=== PATIENT | female | born 1990 | race Caucasian/White ===

== ENCOUNTER 2022-08-27 11:05 | Emergency (ER) | payer OTHER, SELFPAY ==
--- NOTE | ~2022-08-27 | XR_ITS ---
EXAMINATION: XR chest 2V DATE: 08/27/2022 13:29 INDICATION: 4 days of persistent worsening cough TECHNIQUE: PA and lateral views of the chest were obtained. COMPARISON: None FINDINGS: Mild perihilar bronchial wall thickening best appreciated on the lateral projection. No focal airspac e opacities, pleural effusion or pneumothorax. The cardiomediastinal silhouette is normal. Visualized bones and soft tissues are unremarkable. IMPRESSION: 1. Mild perihilar bronchial wall thickening without evident airspace disease which could be seen with bronchitis or reactive airway disease/asthma. Reviewed, dictated and finalized at location A. IMPRESSION: 1. Mild perihilar bronchial wall thickening without evident airspace disease wh ich could be seen with bronchitis or reactive airway disease/asthma.
[2022-08-27 11:08] VITALS: BP 122/90; PULSE 86; RESP 18; TEMP 36.1; O2SAT 100
[2022-08-27 11:18] VITALS: O2SAT 99
--- NOTE | 2022-08-27 12:34 | ED.URI ---
HPI - URI/Sore Throat General Chief Complaint: Upper Respiratory Infection Stated Complaint: flu B+, cough Time Seen by Provider: 08/27/22 12:03 Source: patient Mode of arrival: ambulatory Limitations: no limitations History of Present Illness HPI Narrative: Patient is a 32 y/o female who presents to the ED with c/o cough. Patient reports she was diagnosed with Influenza B on Thursday. She c/o progressively worsening cough since then, in addition to sore throat, myalgias. Patient is currently 12 weeks gestation[address] She sees Dr[address] Kumar. Denies any abdominal pain, vaginal bleeding, leakage of fluid. Patient was started on Tamiflu Thursday and has been taking this, in addition to Tessalon Perles and Robitussin w/o much relief. She reports cough is worse at night to the point she has had a few episodes of post-tussive emesis and mild difficulty catching her breath after a coughing fit. She denies significant SOB while at rest, denies any CP. Denies documented fevers. Related Data Allergies Allergy/AdvReac Type Severity Reaction Status Date / Time Sulfa (Sulfonamide Allergy Hives Verified 08/27/22 11:21 Antibiotics) Review of Systems Review of Systems: CONSTITUTIONAL: See HPI. ENT: See HPI. CARDIOVASCULAR: Denies chest pain, palpitations, or edema. RESPIRATORY: See HPI. GASTROINTESTINAL: Denies abdominal pain, nausea, vomiting, or diarrhea. GENITOURINARY: Denies vaginal bleeding, dysuria or hematuria. SKIN: Denies rash or itching. MUSCULOSKELETAL: See HPI. NEUROLOGIC: Denies headache, numbness, or weakness. All systems reviewed & are unremarkable except as noted in HPI and below PMFSH Past Medical History Medical History (Updated 08/27/22 @ 16:25 by Marily Pierce PA-C) No pertinent past medical history Surgical History Surgical History (Updated 08/27/22 @ 13:46 by Marily Pierce PA-C) No pertinent past surgical history Social History Social History (Updated 08/27/22 @ 13:46 by Marily Pierce PA-C) Smoking status: Never smoker Exam Narrative: GENERAL: Well appearing, well-nourished, non-toxic, in no acute distress. HEAD: Normocephalic, atraumatic. NECK: Supple. No adenopathy, no masses. RESPIRATORY: Airway patent, respirations nonlabored. Clear to auscultation bilaterally, no rales, rhonchi, wheezing. Frequent coughing on exam. No tachypnea. No stridor. CARDIOVASCULAR: Regular rate and rhythm without murmurs, rubs, or gallops. Radial pulses 2+ and equal bilaterally. ABDOMINAL: Soft, gravid uterus, nontender, nondistended, no hepatosplenomegaly. Normoactive BS. MUSCULOSKELETAL: Moves all extremities. Strength/ROM intact without gross deformities. SKIN: Warm, dry, normal color. No rashes. NEURO: A&O X3. Speech clear. Cranial nerves II-XII grossly intact. Steady gait. No ataxic movements. PSYCHIATRIC: Appropriate mood and affect. Normal interaction. Course Vital Signs Vital signs: Vital Signs Temperature 97.0 F L 08/27/22 11:08 Pulse Rate 86 08/27/22 11:08 Respiratory Rate 18 08/27/22 11:08 Blood Pressure 122/90 08/27/22 11:08 Pulse Oximetry 100 08/27/22 11:08 Oxygen Delivery Room Air 08/27/22 11:08 Temperature 97.0 F L 08/27/22 11:08 Pulse Rate 75 08/27/22 16:02 Respiratory Rate 18 08/27/22 16:02 Blood Pressure 133/76 08/27/22 15:22 Pulse Oximetry 100 08/27/22 15:22 Oxygen Delivery Room Air 08/27/22 11:18 MDM - URI/Sore Throat MDM Narrative Medical decision making narrative: Patient presented to ED with persistent cough after being diagnosed with influenza B on Thursday. Started on Tamiflu as she is currently 12 weeks . Denying any issues with . Lungs clear on auscultation. Vitals stable. Afebrile. No tachycardia or tachypnea. No hypoxia. Patient was ambulated throughout the ED, and no hypoxia was noted. Oxygen saturation did not drop below 98%. Patient did not feel significantly out of breath. Chest x-ray obtained and wi
--- NOTE | 2022-08-27 14:35 | PC.NURSE ---
Addendum entered by Maryam Quinteros RN 08/27/22 14:51: Attempted at this time for FHR via external doppler without success. MEI Davis made aware. Original Note: Attempted at this time
[2022-08-27] MEDS: LEVALBUTEROL NEB 1.25 MG/3 ML 2.5 MG INHALATION (14:51)
[2022-08-27] MEDS: IPRATROPIUM BR 0.02% INH SOLN 0.5 MG/2.5 ML VIAL 1.5 MG INHALATION (14:51)
[2022-08-27 14:58] VITALS: PULSE 70; RESP 18
[2022-08-27 15:22] VITALS: BP 133/76; PULSE 90; RESP 20; O2SAT 100
[2022-08-27 16:02] VITALS: PULSE 75; RESP 18
[2022-08-27 16:50] VITALS: BP 125/81; PULSE 97; RESP 18; O2SAT 99
== END 2022-08-27 16:51 | disposition home or self-care (01) ==
PROVIDERS: Emergency Provider Physician Assistant
DX: O99.511 Diseases of the respiratory system complicating pregnancy, first trimester (principal); J10.1 Influenza due to other identified influenza virus with other respiratory manifestations; R05.9 Cough, unspecified; R91.8 Other nonspecific abnormal finding of lung field; Z3A.12 12 weeks gestation of pregnancy
CPT/HCPCS: 71046; 94640; 99283

== ENCOUNTER 2023-01-15 13:25 | Outpatient (RCR) | payer OTHER, SELFPAY ==
[2023-01-17] MEDS: RHO(D) IMMUNE GLOBULIN 300 MCG/2 ML SYRINGE IM (10:30)
== END 2023-04-15 23:59 | disposition home or self-care (01) ==
LOC: ANHLAB 13:25
PROVIDERS: Visit Provider Obstetrics & Gynecology
DX: Z29.13 Encounter for prophylactic Rho(D) immune globulin (principal); O36.0190 Maternal care for anti-D [Rh] antibodies, unspecified trimester, not applicable or unspecified; Z3A.00 Weeks of gestation of pregnancy not specified
CPT/HCPCS: 36415; 85461; 86850; 86900; 86901; 90384; 96372; J2790

== ENCOUNTER 2023-03-03 15:08 | Observation (INO) | payer OTHER, SELFPAY ==
[2023-03-03] VITALS (11 sets, daily range): BP systolic 102–108; BP diastolic 63–72; PULSE 84–103; O2SAT 94–99; BMI 29.3
--- NOTE | 2023-03-03 15:46 | OBADM ---
This patient, Hailee Ordaz, admitted to the OB room Labor/Delivery/Recovery 120 for observation. Patient/family oriented to hospital policies and general routines including ID bracelet, bed and alarms, visiting hours, pain management, procedures, bathroom and other care routines, personal items, smoking policy, room service/diet, and visiting hours. Patient/Family are encouraged to report perceived risks to care and to ask questions if they do not understand what they are told or what they should do.
[2023-03-03 15:53] LABS: Appearance Urine Clear (Clear); Bilirubin Urine Negative (Negative); Blood Urine Negative (Negative); Color Urine Yellow (Yellow); Glucose Urine UA Negative (Negative); Ketones Urine Negative (Negative); Leukocyte Esterase Ur Negative LEU/UL (Negative); Nitrate Urine Negative (Negative); Protein Urine Negative (Negative); Specific Grav Ur 1.004 (1.001-1.035); Urobilinogen Urine 0.2 mg/dL (<2.0)
[2023-03-03 15:54] LABS: Add Urine Microscopic? NO
[2023-03-03] MEDS: TERBUTALINE SULFATE 1 MG/ML VIAL 0.25 MG SUB-Q (16:37)
--- NOTE | 2023-03-03 17:01 | PC.NURSE ---
Dr. Kumar notified of NST and contractions, give dose of terb. Dr. Kumar notified of FHT, contractions and update on patient. Okay to discharge.
--- NOTE | 2023-03-19 13:04 | P.PNOB_ITS ---
OB - Triage/Final Diagnosis Visit Information Comments/Additional reasons for admission: I have assessed the risk for this patient, Madina Ordaz, and determined that she would benefit from observation care. Evaluation Laboratory results: Laboratory Tests 03/03/23 15:37 Urine Color Yellow Urine Appearance Clear Urine pH 7.0 Ur Specific [place] 1.004 Urine Protein Negative Urine Glucose (UA) Negative Urine Ketones Negative Ur Blood (Man) Negative Urine Nitrate Negative Urine Bilirubin Negative Urine Urobilinogen 0.2 Leukocyte Esterase Rfl Negative Final Diagnosis (1) False labor: Code(s): O47.9 - False labor, unspecified Status: Acute
== END 2023-03-03 17:16 | disposition home or self-care (01) ==
PROVIDERS: Admitting Provider Obstetrics & Gynecology; Visit Provider Obstetrics & Gynecology
DX: O47.03 False labor before 37 completed weeks of gestation, third trimester (principal); Z3A.35 35 weeks gestation of pregnancy
CPT/HCPCS: 81003; 96372; G0378; G0379; J3105

== ENCOUNTER 2023-03-04 10:09 | Observation (INO) | payer OTHER, SELFPAY ==
[2023-03-04] VITALS (60 sets, daily range): BP systolic 102–116; BP diastolic 57–78; PULSE 51–117; TEMP 36.8; O2SAT 81–100; BMI 29.1
--- NOTE | 2023-03-04 11:00 | OBADM ---
This patient, Madina Ordaz, admitted to the OB [id number] for observation. Patient/family oriented to hospital policies and general routines including ID bracelet, bed and alarms, visiting hours, pain management, procedures, bathroom and other care routines, personal items, smoking policy, room service/diet, and visiting hours. Patient/Family are encouraged to report perceived risks to care and to ask questions if they do not understand what they are told or what they should do.
[2023-03-04] MEDS: TERBUTALINE SULFATE 1 MG/ML VIAL 0.25 MG SUB-Q (11:31)
[2023-03-04] MEDS: NIFEdipine 10 MG CAPSULE PO (14:37)
--- NOTE | 2023-03-19 13:04 | PM.OBTRLD ---
OB - Triage/Final Diagnosis Visit Information Comments/Additional reasons for admission: I have assessed the risk for this patient, Madina Ordaz, and determined that she would benefit from observation care. Final Diagnosis (1) False labor: Code(s): O47.9 - False labor, unspecified Status: Acute
== END 2023-03-04 16:09 | disposition home or self-care (01) ==
PROVIDERS: Admitting Provider Obstetrics & Gynecology; Visit Provider Obstetrics & Gynecology
DX: O47.03 False labor before 37 completed weeks of gestation, third trimester (principal); Z3A.35 35 weeks gestation of pregnancy
CPT/HCPCS: 96372; A9270; G0378; G0379; J3105

== ENCOUNTER 2023-03-06 12:45 | Observation (INO) | payer OTHER, SELFPAY ==
[2023-03-06 13:26] VITALS: BMI 29.7
--- NOTE | 2023-03-06 13:27 | OBADM ---
This patient, Madina Ordaz, admitted to the OB room OB Post 117 for observation. Patient/family oriented to hospital policies and general routines including ID bracelet, bed and alarms, visiting hours, pain management, procedures, bathroom and other care routines, personal items, smoking policy, room service/diet, and visiting hours. Patient/Family are encouraged to report perceived risks to care and to ask questions if they do not understand what they are told or what they should do.
[2023-03-06 13:30] VITALS: BP 102/72; PULSE 105
[2023-03-06 13:35] LABS: Appearance Urine Clear (Clear); Bilirubin Urine Negative (Negative); Blood Urine Negative (Negative); Color Urine Yellow (Yellow); Glucose Urine UA Negative (Negative); Ketones Urine 1+ mg/dL (Negative); Leukocyte Esterase Ur Negative LEU/UL (Negative); Nitrate Urine Negative (Negative); Protein Urine Negative (Negative); Urobilinogen Urine 0.2 mg/dL (<2.0)
[2023-03-06 13:45] VITALS: BP 107/66; PULSE 100
[2023-03-06 13:51] LABS: Add Urine Microscopic? NO
[2023-03-06 14:00] VITALS: BP 106/66; PULSE 95
[2023-03-06 14:15] VITALS: BP 105/72; PULSE 92
--- NOTE | 2023-03-06 14:22 | PC.NURSE ---
Report to Dr. Kumar re: fhr tracing, no contractions noted, and u/a results. Orders to DC home and have pt. keep regular appt.
[2023-03-06 14:30] VITALS: BP 98/70; PULSE 95
--- NOTE | 2023-03-19 13:05 | P.PNOB_ITS ---
OB - Triage/Final Diagnosis Visit Information Comments/Additional reasons for admission: I have assessed the risk for this patient, Madina Ordaz, and determined that she would benefit from observation care. Evaluation Laboratory results: Laboratory Tests 03/06/23 13:29 Urine Color Yellow Urine Appearance Clear Urine pH 7.0 Ur Specific [place] 1.010 Urine Protein Negative Urine Glucose (UA) Negative Urine Ketones 1+ H Ur Blood (Man) Negative Urine Nitrate Negative Urine Bilirubin Negative Urine Urobilinogen 0.2 Leukocyte Esterase Rfl Negative Final Diagnosis (1) False labor: Code(s): O47.9 - False labor, unspecified Status: Acute
== END 2023-03-06 14:40 | disposition home or self-care (01) ==
PROVIDERS: Admitting Provider Obstetrics & Gynecology; Visit Provider Obstetrics & Gynecology
DX: O47.9 False labor, unspecified (principal); Z3A.00 Weeks of gestation of pregnancy not specified
CPT/HCPCS: 81003; G0378; G0379

== ENCOUNTER 2023-03-31 12:44 | Outpatient (CLI) | payer OTHER, SELFPAY ==
[2023-03-31 13:07] LABS: Hematocrit 39.1 % (37.0-47.0); Hemoglobin 12.6 g/dL (12.0-15.0); Mean Corpuscular HGB Conc 32.2 g/dl (32-36); Mean Corpuscular Hemoglobin 30.4 pg (26-34); Mean Corpuscular Volume 94.4 fl (80-100); Mean Platelet Volume 10.8 fl (7.4-10.4); Platelet Count Result 227 k/mm3 (150-375); Red Blood Count 4.14 M/mm3 (4.2-5.4); Red Cell Distribution Width 14.3 % (11.5-14.5); White Blood Count 9.9 K/mm3 (4.5-10.0)
[2023-03-31 15:45] LABS: Rapid Plasma Reagin Non-Reactive (NonReactive)
== END 2023-03-31 12:45 | disposition home or self-care (01) ==
LOC: ANHLAB 12:45
PROVIDERS: Visit Provider Obstetrics & Gynecology
DX: Z34.93 Encounter for supervision of normal pregnancy, unspecified, third trimester (principal); Z3A.00 Weeks of gestation of pregnancy not specified
CPT/HCPCS: 36415; 85027; 86592; 86850; 86880; 86900; 86901

== ENCOUNTER 2023-04-01 05:08 | Inpatient (IN) | payer OTHER, SELFPAY ==
[2023-04-01] VITALS (64 sets, daily range): BP systolic 85–128; BP diastolic 44–92; PULSE 58–148; RESP 16–20; TEMP 36.1–36.6; O2SAT 98–100; BMI 28.2
--- NOTE | 2023-04-01 05:35 | LDADM ---
This patient, Madina Ordaz, was admitted to Labor/Delivery/Recovery 120 on 04/01/23 at 05:08. Plans for labor, pain management and were discussed with patient. Patient/family oriented to hospital policies and general routines including ID bracelet, bed and alarms, visiting hours, pain management, procedures, bathroom and other care routines, personal items, smoking policy, room service/diet and guest tray routines, infant security routines, and visiting hours. Patient/Family are encouraged to report perceived risks to care and to ask questions if they do not understand what they are told or what they should do. See OBIX for further documentation.
[2023-04-01] MEDS: LACTATED RINGERS 1,000 ML 125 ML IV CONT ×2 (05:49→06:56)
--- NOTE | 2023-04-01 07:38 | WPDANESEPP ---
Anes - Eval Pre Procedure Procedure: Operation Date: 04/01/23 07:30 Proposed Procedures p Repeat Section - David Kumar MD Date/Time: 04/01/23 07:38 Surgeon: Stacy Preop Diagnosis: previous c/s Pre Op Diagnosis: Repeat Patient Data Age: 32 Gender: F Height: 1.65 m Weight: 77 kg Last Vital Signs Pulse 82 04/01/23 06:45 BP 116/76 04/01/23 06:45 O2 Del Method Room Air 04/01/23 06:41 Allergies Allergy/AdvReac Type Severity Reaction Status Date / Time Sulfa (Sulfonamide Allergy Hives Verified 03/09/23 13:16 Antibiotics) Home Medications Medication Instructions Recorded Confirmed Type vit no.95-ferrous 1 tablet PO DAILY 03/04/23 04/01/23 History fumarate 28 mg-folic acid 800 mcg tablet () Patient hx anesthesia problems: none Family hx anesthesia problems: none Results Review: All pre-operative results and documents have been reviewed as part of the pre-operative evaluation. [facility] Past Medical History Medical History No pertinent past medical history Surgical History Surgical History No pertinent past surgical history Family History Family History Father Type 2 diabetes mellitus Social History Social History Smoking status: Never smoker Substance use: never Lack of Transportation: No Lack of Food: Never True Current Housing: I Have Housing Concerned About Future Housing: No Difficulty Paying Gas/Electric Bills: No Difficulty Paying for Meds: No Currently Unemployed: No Education: Associate Degree Difficulty w/ Childcare or Family Care: No Spiritual care concerns: No Exam Day of Procedure 04/01/23 07:38 Patient weight: normal Heart: regular rate and rhythm Lungs: normal air movement Airway: Mallampati scale class II Neurological: alert and oriented
--- NOTE | 2023-04-01 07:38 | PM.IMHP ---
H&P: HPI History of Present Illness Date/Time: 04/01/23 07:38 Chief Complaint: Here for C section Narrative: 32 y/o at 39 1/7 weeks here for repeat . GBS neg. Rh neg. essentially uncomplicated. Review of Systems Review of Systems: All systems reviewed & are unremarkable except as noted in HPI and below PMFSH Past Medical History Medical History (Updated 04/01/23 @ 07:41 by David Kumar MD) No pertinent past medical history Surgical History Surgical History (Updated 04/01/23 @ 07:41 by David Kumar MD) History of delivery No pertinent past surgical history Family History Family History Father Type 2 diabetes mellitus Social History Social History Smoking status: Never smoker Substance use: never Lack of Transportation: No Lack of Food: Never True Current Housing: I Have Housing Concerned About Future Housing: No Difficulty Paying Gas/Electric Bills: No Difficulty Paying for Meds: No Currently Unemployed: No Education: Associate Degree Difficulty w/ Childcare or Family Care: No Spiritual care concerns: No Meds Home Medications and Allergies Home Medications Medication Instructions Recorded Confirmed Type vit no.95-ferrous 1 tablet PO DAILY 03/04/23 04/01/23 History fumarate 28 mg-folic acid 800 mcg tablet () Allergies Allergy/AdvReac Type Severity Reaction Status Date / Time Sulfa (Sulfonamide Allergy Hives Verified 03/09/23 13:16 Antibiotics) Vital Signs Vital Signs - 24 hr 04/01/23 05:35 04/01/23 05:45 04/01/23 06:00 Pulse Rate 82 80 87 Blood Pressure 111/73 119/76 128/82 Oxygen Delivery 04/01/23 06:15 04/01/23 06:30 04/01/23 06:45 Pulse Rate 80 74 82 Blood Pressure 122/76 127/72 116/76 Oxygen Delivery 04/01/23 06:41 Pulse Rate Blood Pressure Oxygen Delivery Room Air Exam Const: Orientation/consciousness: patient oriented x3 Other: Well-developed, well-nourished female in no acute distress. Neck: Thyroid: thyroid normal Lymphatic: no lymphadenopathy noted (in neck, axilla or inguinal nodes) Resp: Effort & Inspection: normal respiratory effort Auscultation: clear to auscultation bilaterally Cardio: Rate: regular rate Rhythm: regular rhythm Heart sounds: S1 normal heart sound present and S2 normal heart sound present GI: Other: ABD: Soft, nontender, nondistended, gravid. NST reactive. TOCO: irregular contractions. No guarding or rebound tenderness. No hepatosplenomegaly. : General: Yes no CVA tenderness Other: Cervix 1/80/-2 at last office visit Back/Spine/Pelvis: Back: no CVA tenderness Skin: General skin exam: normal color and no rashes or lesions noted Neuro: General: patient oriented x3 Extrem: Other: Extremities: nontender with no edema Psych: Mental Status: mental status grossly normal Affect: normal affect Assessment and Plan Assessment and plan (1) Term : Code(s): Z34.90 - Encounter for supervision of normal , unspecified, unspecified trimester Status: Acute Assessment and Plan: A: IUP at 39 1/7 weeks with prior , desires repeat. P: Offered repeat delivery. She understands risks of surgery to include risks of anesthesia, risks of pain, infection, bleeding, blood products, thromboembolic phenomena and damage to adjacent structures such as bowel, bladder, ureters, blood vessels and nerves. She understands all these risks and elects to proceed with surgery. (2) History of delivery: Code(s): Z98.891 - History of uterine scar from previous surgery Status: Acute
[2023-04-01] MEDS: ceFAZolin 2 GM/D5W 50 ML 2 GM/50 ML BAG IVPB (07:40)
--- NOTE | 2023-04-01 07:41 | WPDHPUPDATE1 ---
History and Physical Update Update Date/Time: 04/01/23 07:41 History and Physical has been reviewed, including an updated exam of the patient. There are NO changes in the patient's condition. Risks, benefits, and alternatives have been discussed and questions answered. Patient agrees to proceed with procedure.
[2023-04-01] MEDS: KETOROLAC 30 MG/ML VIAL (*BKC) 15 MG IV PUSH (08:25)
--- NOTE | 2023-04-01 08:31 | W.PM.OBCSD ---
OB - Delivery Note Procedure Delivery date: 04/01/23 Pre-op diagnosis: Other (1) IUP at 39 1/7 weeks; 2) Prior , desires repeat) Post-op Diagnosis: Same Induction method: None Delivery monitor: External FHT and External Uterine Procedure Performed: Repeat Surgeon: David Kumar MD Anesthesia type: Spinal Description of Procedure/Findings: The patient was taken to the operating room where she was prepared and draped in the usual sterile fashion in dorsal supine position with a leftward tilt. She received cefazolin preoperatively. Spinal anesthesia was found to be adequate. A Pfannenstiel skin incision was made, excising the previous scar and discarding it. The incision was carried through to the underlying layer of the fascia. The fascia was incised in the midline and the incision was extended laterally. The fascia was dissected free of the underlying rectus muscles. The rectus muscles were in the midline. The peritoneum was identified, tented up and entered sharply. The peritoneal incision was extended superiorly and inferiorly with good visualization of the bladder. The bladder blade was placed. The vesicouterine peritoneum was identified, tented up and entered sharply. The incision was extended laterally and the bladder flap was developed. The bladder blade was replaced. The uterus was then incised sharply in a transverse fashion along the lower uterine segment. The incision was extended laterally. The 's head was delivered atraumatically to the sterile field, followed by the body. The nose and mouth were bulb suctioned. After a delay, the cord was clamped and cut. The was handed off the field. Cord blood was collected. The placenta was removed manually and was passed off the field. The uterus was exteriorized and cleared of all clots and debris. The uterine incision was reapproximated using 0 Monocryl in a running, locked fashion. Excellent hemostasis resulted as did excellent reapproximation of the normal anatomy. The uterus was returned the abdomen. The pelvis was irrigated copiously with warmed normal saline. Rigorous hemostasis was assured. The fascial layer was reapproximated using 0 Vicryl in a running fashion. The skin was closed with a running, subcuticular stitch of 4 0 Vicryl. Dermaflex was applied externally. Sponge, lap, needle and instrument counts were correct. The patient was taken to the recovery room in stable condition. The infant went to the nursery. I was present and scrubbed the entire procedure. Specimen: Yes (cord blood) Estimated Blood Loss: 115 Drains: Yes ([place]) Packing: No Pathology: Yes (Cord blood) Complications: None Condition: Stable Disposition: PACU Baby Date of : 04/01/23 Time of : 08:03 Weeks of gestation at delivery: 39 Infant gender: Female Weight (pounds): 6 Weight (ounces): 12 presentation: vertex Placenta delivery description: Manual Removal and Normal Configuration Cord Vessel Description: 3 Vessels score one minute: 4 score five minutes: 6 score ten minutes: 9
--- NOTE | 2023-04-01 08:35 | P.DS_ITS ---
DS: Admitting Diagnosis Discharge Date 04/03/23 Admitting Diagnosis IUP at 39 1/7 weeks Prior , desires repeat DS: Discharge Diagnosis Discharge Diagnosis (1) delivery delivered: Code(s): O82 - Encounter for delivery without indication Status: Acute OB - DS: Summary OB Procedures : None OB Procedures Intrapartum: OB Procedures: : RHo (D) lg Peripartum Data Procedures: Procedures Operation Date: 04/01/23 07:30 <No data on this case meets the specified criteria> Repeat LTCS Time Spent with Patient Time attestation: Total time spent providing and/or coordinating discharge services: Discharge Plan Discharge Attending physician on discharge: David Kumar Discharging Clinician: David Kumar Patient Disposition: Home, Self-Care Activity: may shower, may drive after 2 weeks and pelvic rest Diet: regular Wound Care Instructions: incision open to air Discharge Instructions: Call or return if temperature above 100.4? F, increased abdominal pain, increased vaginal bleeding or any new problems. Stand Alone Forms: General Discharge Information Follow-up/Referrals: David Kumar MD [Physician] - 4 Weeks Discharge Medications: New ibuprofen 600 mg tablet 600 mg PO Q6H PRN (Reason: cramps) Qty: 30 0RF hydrocodone-acetaminophen 5-325 mg tablet 1 - 2 tablet PO Q6H PRN (Reason: pain) Qty: 30 0RF Continued PNV cmb#95-ferrous fumarate-FA [] 28 mg iron- 800 mcg Tablet 1 tablet PO DAILY Date of admission: 04/01/23 05:08 Primary Care Provider: PHYSICIAN,PLASTIC CUTTER Admitting Provider: David Kumar Attending physician on admission: David Kumar Condition: Stable
[2023-04-01] MEDS: OXYTOCIN 30 UNITS/NS 500 ML 30 UNITS/500 ML BAG 125 UNITS IV CONT (09:13)
--- NOTE | 2023-04-01 11:01 | PC.NURSE ---
Patient transferred to post room #290 via stretcher. Support person present. Oriented to unit, room, information board, rooming in, admission packet and security measures. Patient verbalizes understanding.
[2023-04-01] MEDS: DEXTROSE 5%/0.45% SOD CHL 1,000 ML 125 ML IV CONT ×2 (12:22→23:45)
[2023-04-01] MEDS: KETOROLAC 30 MG/ML VIAL (*BKC) IV PUSH (12:23)
[2023-04-01] MEDS: SODIUM CHLORIDE 0.9% IV 500 ML 999 ML IV CONT (20:45)
[2023-04-01 21:07] LABS: Hematocrit 32.3 % (37.0-47.0); Hemoglobin 10.4 g/dL (12.0-15.0)
[2023-04-02] MEDS: HYDROcodone/acetaminophen (*CRX) 5-325 MG TABLET 1 TAB PO ×5 (00:24→23:07)
[2023-04-02 03:55] VITALS: BP 97/63; PULSE 70; RESP 18; TEMP 37; O2SAT 97
[2023-04-02 04:41] LABS: Basophils Percent Auto 0.3 % (0.2-1.2); Eosinophils Absolute Auto 0.1 K/mm3 (0-0.3); Eosinophils Percent Auto 0.5 % (0-4.4); Hematocrit 32.7 % (37.0-47.0); Hemoglobin 10.5 g/dL (12.0-15.0); Immature Granulocyte Absolute 0.04 K/mm3 (0.00-0.031); Immature Granulocyte Percent A 0.4 % (0-0.5); Lymphocytes Absolute Auto 2.35 K/mm3 (0.9-3.2); Lymphocytes Percent Auto 25.5 % (18.3-44.2); Mean Corpuscular HGB Conc 32.1 g/dl (32-36); Mean Corpuscular Hemoglobin 31.3 pg (26-34); Mean Corpuscular Volume 97.3 fl (80-100); Mean Platelet Volume 11.1 fl (7.4-10.4); Monocytes Absolute Auto 0.8 K/mm3 (0.1-0.6); Monocytes Percent Auto 8.6 % (2.6-8.5); Neutrophils Absolute Auto 5.9 K/mm3 (1.3-6.7); Neutrophils Percent Auto 64.7 % (45.5-73.1); Platelet Count Result 188 k/mm3 (150-375); Red Blood Count 3.36 M/mm3 (4.2-5.4); Red Cell Distribution Width 14.4 % (11.5-14.5); White Blood Count 9.2 K/mm3 (4.5-10.0)
[2023-04-02 07:20] VITALS: BP 96/62; PULSE 76; RESP 16; TEMP 37; O2SAT 97
[2023-04-02] MEDS: IBUPROFEN 600 MG TABLET PO ×3 (09:41→23:08)
[2023-04-02] MEDS: DOCUSATE SODIUM 100 MG CAPSULE PO ×2 (09:42→16:29)
--- NOTE | 2023-04-02 10:10 | WPDANLDPN2 ---
Anes-Prog Note L&D Date/Time: 04/02/23 10:10 Comfortable throughout: section Neuraxial method: spinal Epidural/Spinal procedure site: clean & non-tender Neuro status: Neuro function grossly intact. Cardiovascular status: normal Respiratory status: normal Airway patency: baseline Mental status: baseline Post-Op hydration status: normal Vital Signs: Last Vital Signs Temp 37.0 C 04/02/23 07:20 Pulse 76 04/02/23 07:20 Resp 16 04/02/23 07:20 BP 96/62 L 04/02/23 07:20 Pulse Ox 97 04/02/23 07:20 O2 Del Method Room Air 04/02/23 07:20 Pain score (VAS): 2/10 I/O: Intake & Output 04/01/23 04/02/23 04/02/23 23:59 07:59 15:59 Intake Total 1980 700 Output Total 1300 2250 Balance 680 -1550 Post-procedural complaints: pruritis moderate, treatment effective Patient feedback: Patient satisfied with anesthetic care.
--- NOTE | 2023-04-02 10:11 | WPDANLDNPN2 ---
Anes-Prog Note L&D-Neuraxial Date/Time: 04/02/23 10:11 Neuraxial medications: intrathecal PF morphine Opiod-related complaints: pruritis moderate, treatment effective Patient feedback: Patient satisfied with post-operative pain management.
--- NOTE | 2023-04-02 11:28 | P.PNOB_ITS ---
OB - PN: Subj Subjective Date/time seen: 04/02/23 11:28 Narrative: Pain OK. Tolerating diet. OB - PN: Obj Data Labs 04/02/23 03:50 Labs: Laboratory Results - last 24 hr 04/01/23 04/02/23 20:53 03:50 WBC 9.2 RBC 3.36 L Hgb 10.4 L 10.5 L Hct 32.3 L 32.7 L MCV 97.3 MCH 31.3 MCHC 32.1 RDW 14.4 Plt Count 188 MPV 11.1 H Immature Gran % (Auto) 0.4 Neut % (Auto) 64.7 Lymph % (Auto) 25.5 [place] % (Auto) 8.6 H Eos % (Auto) 0.5 Baso % (Auto) 0.3 Lymph # (Auto) 2.35 [place] # (Auto) 0.8 H Eos # (Auto) 0.1 Baso # (Auto) 0.0 Abs Immat Gran (auto) 0.04 H Absolute Neuts (auto) 5.9 Absolute Nucleated RBC 0.0 Nucleated RBC % 0.0 Blood Type O Negative Antibody Screen Negative Screen Negative Baby's Blood Type O pos Baby's PERLA Positive Doses of RhIg Required 1 OB - PN A/P Plan Comments: A: POD#1, doing well. P: Routine care. Exam Narrative: AVSS I/O OK ABD soft, nontender, fundus firm. Incision c/d/i. EXT nontender
[2023-04-02] MEDS: RHO(D) IMMUNE GLOBULIN 300 MCG/2 ML SYRINGE IM (18:08)
[2023-04-02 18:45] VITALS: BP 102/76; PULSE 64; RESP 16; TEMP 36.5; O2SAT 100
[2023-04-03] MEDS: IBUPROFEN 600 MG TABLET PO (07:08)
[2023-04-03] MEDS: MULTIVIT/MIN/PREN/FOL AC/IRON TABLET 1 TAB PO (07:08)
[2023-04-03] MEDS: HYDROcodone/acetaminophen (*CRX) 5-325 MG TABLET 1 TAB PO ×2 (07:08→12:38)
[2023-04-03] MEDS: DOCUSATE SODIUM 100 MG CAPSULE PO (07:08)
[2023-04-03 09:35] VITALS: BP 107/76; PULSE 61; RESP 18; TEMP 36.7; O2SAT 99
--- NOTE | 2023-04-03 11:50 | PM.OBPNVD ---
OB - PN: Subj Subjective Date/time seen: 04/03/23 11:50 Narrative: Pain OK. Tolerating diet. Would like to go home. OB - PN: Obj Data Labs 04/02/23 03:50 Labs: Laboratory Results - last 24 hr 04/02/23 03:50 Blood Type O Negative Antibody Screen Negative Screen Negative Baby's Blood Type O pos Baby's PERLA Positive Doses of RhIg Required 1 OB - PN A/P Plan Comments: A: POD#2, doing well. P: Home to f/u 4 weeks. Exam Narrative: AVSS ABD soft, nontender, fundus firm. Incision c/d/i. EXT nontender
[2023-04-04 09:39] VITALS: BP 115/74; PULSE 68; RESP 20; TEMP 36.4; O2SAT 99
== END 2023-04-03 14:30 | disposition home or self-care (01) | DRG 788 ==
LOC: ANHLDR 08:36 → ANHOB2 11:14
PROVIDERS: Admitting Provider Obstetrics & Gynecology; Visit Provider Obstetrics & Gynecology
PROC: 10D00Z1 Extraction of Products of Conception, Low, Open Approach (ICD-10-PCS; CPT 59514; principal; 2023-04-01 07:30)
DX: O34.219 Maternal care for unspecified type scar from previous cesarean delivery (principal); Z3A.39 39 weeks gestation of pregnancy; Z37.0 Single live birth
CPT/HCPCS: 36415; 85014; 85018; 85025; 85461; 86850; 86900; 86901; 90384; A9270; J0690; J1885; J2274; J2371; J2405; J2590; J2790; J7030; J7040; J7120